=== PATIENT | male | born 1960 | race Two or more races ===

== ENCOUNTER → 2017-04-28 | Outpatient (CLI) | payer OTHER ==
--- NOTE | 2017-05-09 01:12 | ECWPNPC ---
PATIENT NAME: MANNY ZENDEJAS : 1960 GENDER: MALE VISIT DATE: 04/28/2017 DISCHARGE DATE: 04/28/17 1253 VISIT LOCKED DATE TIME: PHYSICIAN: LAVONNE GEE RESOURCE: LAVONNE GEE REASON FOR APPOINTMENT 1. LOW BACK PAIN HISTORY OF PRESENT ILLNESS NEW PATIENT CONSULT: WHEN DID YOUR PAIN FIRST START? . BRIEFLY DESCRIBE HOW YOUR PAIN STARTED? . HOW DOES YOUR PAIN CHANGE WITH TIME? . DOES YOUR PAIN AWAKEN YOU FROM SLEEP? . HOW MANY HOURS OF SLEEP DO YOU NORMALLY GET? . ANY DIAGNOSTIC TESTING? . FACILITY WHERE TESTS WERE DONE? ____. PAIN TREATMENT TREATMENT YES CANCER HAVE YOU EVER HAD ANY TYPE OF CANCER?NO NO. 56 YEAR OLD MALE PATIENT WITH HISTORY OF CHRONIC LOW BACK PAIN. PATIENT DESCRIBES THE PAIN ACHING, THROBBING, STABBING AND HAVING IT ALL THE TIME WITH A PAIN SCORE OF 6/10. PATIENT STATES THAT THE PAIN HAS BEEN PRESENT FOR MANY YEARS BUT BECAME SEVERE WITHIN THE LAST FIVE YEARS. PATIENT STATES THAT ANY TYPE OF ACTIVITY INCLUDING WALKING, STANDING, SITTING, AND USING STAIRS INCREASES THE PAIN HE HAS IN HIS LOWER BACK. PATIENT IS USING XERALTO FOR A BLOOD CLOT. PATIENT DENIES UNEXPLAINABLE WEIGHT LOSS, FEVER, CHILLS, NEW CHANGES ON HIS URINARY OR BOWEL CONTROL. PAIN SCREENING: PATIENT HAS A COMPLAINT OF ACUTE OR CHRONIC PAIN :YES FALL RISK SCREENING: SCREENING :NO FALLS IN THE PAST YEAR VILLALTA INVENTORY: QUESTIONNAIRE ASSESSEDTBD SCORE VALUE CALCULATED TBD CURRENT MEDICATIONS TAKING OMEPRAZOLE 20 MG CAPSULE DELAYED RELEASE 1 CAPSULE ORALLY ONCE A DAY TAKING FEXOFENADINE-PSEUDOEPHED ER 60-120 MG TABLET EXTENDED RELEASE 12 HOUR 1 TABLET NEEDED ORALLY TWICE A DAY TAKING SERTRALINE HCL 100 MG TABLET 1 TABLET ORALLY ONCE A DAY TAKING HYDROCHLOROTHIAZIDE 12.5 MG CAPSULE 1 CAPSULE IN THE MORNING ORALLY ONCE A DAY TAKING INCRUSE ELLIPTA 62.5 MCG/INH AEROSOL POWDER BREATH ACTIVATED 1 PUFF INHALATION ONCE A DAY TAKING XARELTO 15 MG TABLET ORALLY BID TAKING PRAVASTATIN SODIUM 20 MG TABLET 1 TABLET ORALLY ONCE A DAY UNKNOWN SPIRIVA HANDIHALER 18 MCG CAPSULE 1 CAPSULE INHALATION ONCE A DAY MEDICATION LIST REVIEWED AND RECONCILED WITH THE PATIENT PAST MEDICAL HISTORY HEPATOTOXICITY ETOH ABUSE BLOOD CLOTS IN LUNGS DEPRESSION HYPERLIPIDEMIA HTN EMPHYSEMA LOW BACK PAIN OSTEOARTHRITIS OF LEFT HIP ALLERGIES WELLBUTRIN: JITTERY FEELING SURGICAL HISTORY DENIES PAST SURGICAL HISTORY FAMILY HISTORY FATHER: 62 YRS, DIAGNOSED WITH HEART DISEASE MOTHER: 81 YRS SIBLINGS: KIDNEY DISEASE, DIAGNOSED WITH DIABETES SOCIAL HISTORY GENERAL: LEARNING BARRIERS / SPECIAL NEEDS VISION IMPAIRED?YES :CORRECTIVE LENSES SPECIAL DEVICES?YES :CANE, WALKER, WHEELCHAIR PAIN CLINIC PFS, CLERGY, PUBLIC HEALTH REFERRALS CLERGY REFERRAL NEEDED?NO WAS THE PROVIDER NOTIFIED OF ANY PERTINENT INFO?NO PFS REFERRAL NEEDED?NO PUBLIC HEALTH REFERRAL NEEDED?NO PATIENT: ____. ADVANCE DIRECTIVES HEALTH CARE PROXY?YES NAME OF HCP TRISTAN GOMEZ CONTACT # FOR HCP [phone] DO YOU HAVE A DNR?NO LIVING WILL?NO POWER OF RN ORTHOPEDIC?NO HOSPITALIZATION/MAJOR DIAGNOSTIC PROCEDURE LIVER, KIDNEYS REVIEW OF SYSTEMS REVIEWED BY: PROVIDER: LAVONNE GEE MD . CONSTITUTIONAL: ANY CHANGE IN YOUR MEDICAL CONDITION? NO . CHILLS NO . FEVER NO . INFECTION: DO YOU HAVE NEW INFECTIONS? NO . DO YOU HAVE HISTORY OF MRSA? NO . MUSCULOSKELETAL: ANY NEW PATTERNS OF PAIN OR NUMBNESS? NO . SYTEMIC LUPUS NO . GASTROENTEROLOGY: ANY NEW CHANGE IN BOWEL CONTROL? NO . BARRETTS ESOPHAGUS NO . CIRRHOSIS YES . HEPATITIS NO . LIVER FAILURE NO . ACID REFLUX NO . UNEXPLAINED WEIGHT LOSS NO . GENITOURINARY: ANY NEW CHANGE IN BLADDER CONTROL? NO . IS THERE A CHANCE YOU COULD BE ? NO . HEMATOLOGY/LYMPH: DO YOU TAKE ANY BLOOD THINNERS? (FOR EXAMPLE- COUMADIN, PLAVIX, AGGRENOX, PLATEL, PRADAXA, OR XARELTO) YES, XARELTO . WHEN WAS YOUR LAST DOSE? DATE: TIME: . LOW PLATELET COUNT NO . SICKLE CELL DISEASE NO . VON WILLIEBRANDS NO . FACTOR V LEIDEN NO . THALLASEMIA NO . ANEMIA NO . EASY BRUISING NO . NEUROLOGY: HAVE YOU FALLEN IN THE PAST 6 MONTHS? YES . ANY NEW EXTREMITY NUMBNESS OR WEAKNESS? NO . HEAD INJURY NO . DEMENTIA NO . CEREBRAL PALSY NO . MULTIPLE SCLEROSIS NO . DIZZINESS YES . HEADACHE NO . STROKES NO . VERTIGO NO . CARDIOLOGY: DO YOU HAVE A PACEMAKER OR DEFIBRILLATOR? NO . ANGINA NO . HEART ATTACK NO . HEART SURGERY NO . CONGESTIVE HEART FAILURE/FLUID OVERLOAD YES . CHEST PAIN CHEST PAIN WITH EXERTION . HIGH BLOOD PRESSURE YES . IRREGULAR HEART BEAT NO . RESPIRATORY: HAVE YOU BEEN SICK IN THE PAST WEEK? NO . FEVER NO . FLU LIKE SYMPTOMS? NO . CPAP NO . BYPAP NO . ASTHMA NO . EMPHYSEMA YES . CHRONIC LUNG DISEASES NO . SHORTNESS OF BREATH ON EXERTION YES . DO YOU USE ANY TYPE OF TOBACCO (SMOKE, SMOKELESS, CHEW)? NO . COUGH NO . SNORING NO . INTEGUMENTARY: DO YOU HAVE ANY RASHES OR OPEN SORES? NO . ALLERGIC/IMMUNO: ARE YOU ALLERGIC TO SHELLFISH OR IV DYE? NO . ANY NEW ALLERGIES? NO . PSYCHIATRIC: DO YOU HAVE THOUGHTS OF HURTING YOURSELF OR SOMEONE ELSE? NO . ARE YOU ABUSED, NEGLECTED, OR IN AN UNSAFE ENVIRONMENT? NO . ENDOCRINOLOGY: ARE YOU DIABETIC? YES, PT WAS TOLD HE IS THEN HE ISN'T . THYROID DISORDER NO . OTHER: DO YOU NEED ANY PRESCRIPTIONS? YES . IF YES, PLEASE LIST: ____ . ANY NEW PROBLEMS WITH YOUR MEDICATIONS? NO . WHEN DID YOU LAST EAT? ____ . WHEN DID YOU LAST DRINK? ____ . WHAT DID YOU LAST DRINK? ____ . NAME OF PERSON DRIVING YOU HOME? ____ . DO YOU HAVE ANY OTHER QUESTIONS OR CONCERNS NO . VITAL SIGNS WT 167 LBS, HT 69 IN, BMI 24.66 INDEX, BP 125/77 MM HG, HR 110 /MIN, RR 16 /MIN, TEMP 97.3 F, OXYGEN SAT % 99, REVIEWED BY: KEELY. EXAMINATION : PATIENT IS ALERT O X 3 AND COOPERATIVE. TENDERNESS IN THE LOWER BACK AND PARASPINAL MUSCLE GROUP. BANDS OF TISSUE, RESTRICTION OF MOVEMENT, AND PRESENCE OF TRIGGER POINTS IN THE LOWER BACK AREA. MRI OF THE LUMBAR SPINE DONE ON 01/17/17 SHOWS MULTIPLE LEVELS OF SPONDYLOSIS, DISC HERNIATIONS, WELL FACET HYPERTROPHY. ASSESSMENTS MYALGIA - M79.1 (PRIMARY) INTERVERTEBRAL DISC DISORDER WITH RADICULOPATHY OF LUMBAR REGION - M51.16 INTERVERTEBRAL DISC DISORDER WITH RADICULOPATHY OF LUMBOSACRAL REGION - M51.17 SPONDYLOSIS OF LUMBAR REGION WITHOUT MYELOPATHY OR RADICULOPATHY - M47.816 SPONDYLOSIS OF LUMBOSACRAL REGION WITHOUT MYELOPATHY OR RADICULOPATHY - M47.817 TREATMENT MYALGIA NOTES: WE DISCUSSED SEVERAL ISSUES WITH MR. ZENDEJAS'S PAIN MANAGEMENT CASE. AT THIS TIME THE PATIENT WILL START GABAPENTIN FOR THE NEUROPATHIC PAIN HE IS HAVING. I WOULD LIKE TO SPEAK TO THE PATIENT'S PRIMARY CARE DOCTOR TO DISCUSS MEDICATIONS. I WOULD LIKE THE PATIENT TO START CYMBALTA DURING THE DAY AND TIZANIDINE AT NIGHT BUT WOULD LIEK TO DISCUSS THIS WITH DR. CAMPBELL. PATIENT WAS ALSO ADVISED TO ASK HIS PRIMARY PHYSICIAN IF HE IS ABLE TO USE STEROID FOR POSSIBLE INTERVENTIONS. DUE TO THE BANDS OF TISSUE AND RESTRICTION OF MOVEMENT I WOULD LIKE TO PROCEED WITH TRIGGER POINT INJECTIONS WITHOUT STEROIDS. WE DISCUSSED THE RISKS, BENENFITS, AND ALTNERATIVES OF THIS AND THE PATIENT WOULD LIKE TO PROCEED AT THIS TIME. INSTRUCTIONS WERE GIVEN, QUESTIONS WERE ANSWERED, PATIENT REPORTS UNDERSTANDING AND AGREES WITH THE PLAN. I, AFSANEH STEWART, DOCUMENTED THE ABOVE INFORMATION ACTING A SCRIBE FOR DR. GEE. I HAVE REVIEWED THE ABOVE DOCUMENT, WRITTEN BY AFSANEH GUZMAN AND I VERIFY THAT IT IS ACCURATE. DEAR DR. CONLEY:THANK YOU FOR YOUR KIND REFERRAL OF MR. ZENDEJAS. IF YOU WANT TO DISCUSS HIS CASE WITH ME PLEASE CALL ME AT THE PAIN CENTER AT [phone]. SINCERELY,LAVONNE GEE, [facility]. OTHERS START GABAPENTIN CAPSULE, 100 MG, DIRECTED, ORALLY FOR PAIN, BEFORE BEDTIME, 30 DAY(S), 30, REFILLS 1 PROCEDURE CODES FA211 ESTABILISHED PATIENT [facility] FACILITY CHARGE G8427 DOC MEDS VERIFIED W/PT OR RE G8730 PAIN ASSESS POS TOOL F/U PLAN DOC DISPOSITION & COMMUNICATION FOLLOW UP 3 WEEKS ELECTRONICALLY SIGNED BY LAVONNE GEE MD ON 05/08/2017 AT 04:46 PM EDT DISCLAIMER : THIS IS A VISIT SUMMARY EXTRACTED FROM THE [employer] CHART. IT IS NOT A COPY OF THE [employer] PROGRESS NOTE. RAPHAEL
== END ==
LOC: M PAIN 10:45
PROVIDERS: ATTEND Anesthesiology
DX: M79.1 Myalgia (principal); M51.16 Intervertebral disc disorders with radiculopathy, lumbar region; M51.17 Intervertebral disc disorders with radiculopathy, lumbosacral region; M47.816 Spondylosis without myelopathy or radiculopathy, lumbar region; M47.817 Spondylosis without myelopathy or radiculopathy, lumbosacral region; G89.29 Other chronic pain; I10 Essential (primary) hypertension; E78.5 Hyperlipidemia, unspecified; F32.9 Major depressive disorder, single episode, unspecified; J43.9 Emphysema, unspecified; Z79.899 Other long term (current) drug therapy; Z88.8 Allergy status to other drugs, medicaments and biological substances

== ENCOUNTER → 2017-05-26 | Outpatient (CLI) | payer OTHER ==
--- NOTE | 2017-06-12 00:01 | ECWPNPC ---
PATIENT NAME: MANNY ZENDEJAS : 1960 GENDER: MALE VISIT DATE: 05/26/2017 DISCHARGE DATE: 05/26/17 1134 VISIT LOCKED DATE TIME: PHYSICIAN: LAVONNE GEE RESOURCE: LAVONNE GEE REASON FOR APPOINTMENT 1. LOW BACK PAIN HISTORY OF PRESENT ILLNESS HISTORY OF PRESENT ILLNESS: PAIN THE PATIENT DESCRIBES THE PAIN... 56 YEAR OLD MALE PATIENT WITH HISTORY OF CHRONIC LOW BACK PAIN. PATIENT DESCRIBES THE PAIN ACHING, THROBBING, STABBING AND HAVING IT ALL THE TIME WITH A PAIN SCORE OF 6/10. PATIENT STATES THAT THE PAIN HAS BEEN PRESENT FOR MANY YEARS BUT BECAME SEVERE WITHIN THE LAST FIVE YEARS. PATIENT STATES THAT ANY TYPE OF ACTIVITY INCLUDING WALKING, STANDING, SITTING, AND USING STAIRS INCREASES THE PAIN HE HAS IN HIS LOWER BACK. PATIENT IS USING XERALTO FOR A BLOOD CLOT. PATIENT RECEIVED TRIGGER POINT INJECTIONS ON 05/24/17 AND STATES THAT THE TRIGGER POINT INJECTION GAVE HIM GOOD RELIEF IN THE LOWER BACK BUT THE PAIN IN THE LEGS IS GETTING SEVERE. PATIENT DENIES UNEXPLAINABLE WEIGHT LOSS, FEVER, CHILLS, NEW CHANGES ON HIS URINARY OR BOWEL CONTROL. FALL RISK SCREENING: SCREENING :NO FALLS IN THE PAST YEAR CURRENT MEDICATIONS TAKING FAMOTIDINE 20 MG TABLET 1 TABLET AT BEDTIME ORALLY BID, NOTES: 929 TAKING TAB-A-DENVER - TABLET 1 TABLET ORALLY ONCE A DAY, NOTES: 929 TAKING BISACODYL 10 MG SUPPOSITORY 1 SUPPOSITORY NEEDED RECTAL ONCE A DAY TAKING ENEMA 19-7 GM/118ML ENEMA RECTAL AFTER NO BM X 4 DAYS TAKING GLUCAGON EMERGENCY 1 MG KIT INJECTION TAKING ZOFRAN ODT 4 MG TABLET DISINTEGRATING 1 TABLET ON THE TONGUE AND ALLOW TO DISSOLVE ORALLY EVERY 6 HRS, NOTES: 05/23/17@2100 TAKING MORPHINE SULFATE (CONCENTRATE) 20 MG/ML SOLUTION 0.25 ML NEEDED ORALLY BID, NOTES: 05/23/17@2100 TAKING LORAZEPAM 0.5 MG TABLET 1 TABLET NEEDED ORALLY EVERY 8 HRS, NOTES: 05/22/17@1700 TAKING XARELTO 15 MG TABLET ORALLY DAILY, NOTES: 929 TAKING PRAVASTATIN SODIUM 20 MG TABLET 1 TABLET ORALLY ONCE A DAY, NOTES: 929 TAKING SERTRALINE HCL 100 MG TABLET 1 TABLET ORALLY ONCE A DAY, NOTES: 929 TAKING THIAMINE HCL 100 MG TABLET 1 TABLET ORALLY ONCE A DAY, NOTES: 929 TAKING ASPIRIN 81 MG TABLET CHEWABLE 1 TABLET ORALLY ONCE A DAY, NOTES: 929 TAKING FOLIC ACID 400 MCG TABLET 1 TABLET ORALLY ONCE A DAY, NOTES: 929 TAKING DUONEB 0.5-2.5 (3) MG/3ML SOLUTION 3 ML INHALATION TID, NOTES: 929 TAKING VENLAFAXINE HCL ER 75 MG CAPSULE EXTENDED RELEASE 24 HOUR 1 CAPSULE WITH FOOD ORALLY ONCE A DAY, NOTES: 05/23/17@2200 TAKING ALDACTONE 100 MG TABLET 1 TABLET ORALLY ONCE A DAY, NOTES: 929 TAKING LACTULOSE 10 GM/15ML SOLUTION 30 ML ORALLY ONCE A DAY, NOTES: 929 TAKING PULMICORT FLEXHALER 90 MCG/ACT AEROSOL POWDER BREATH ACTIVATED 2 PUFFS INHALATION TWICE A DAY, NOTES: 929 TAKING FUROSEMIDE 40 MG TABLET 1 TABLET ORALLY BID, NOTES: 929 TAKING BANOPHEN 25 MG TABLET 1 TABLET ORALLY BEFORE BEDTIME, NOTES: 05/23/17@2130 TAKING HYDROCHLOROTHIAZIDE 12.5 MG CAPSULE 1 CAPSULE IN THE MORNING ORALLY ONCE A DAY, NOTES: 929 MEDICATION LIST REVIEWED AND RECONCILED WITH THE PATIENT PAST MEDICAL HISTORY HEPATOTOXICITY ETOH ABUSE BLOOD CLOTS IN LUNGS DEPRESSION HYPERLIPIDEMIA HTN EMPHYSEMA LOW BACK PAIN OSTEOARTHRITIS OF LEFT HIP ALLERGIES WELLBUTRIN: JITTERY FEELING REVIEW OF SYSTEMS REVIEWED BY: PROVIDER: LAVONNE GEE MD . CONSTITUTIONAL: ANY CHANGE IN YOUR MEDICAL CONDITION? NO . CHILLS NO . FEVER NO . INFECTION: DO YOU HAVE NEW INFECTIONS? NO . DO YOU HAVE HISTORY OF MRSA? NO . MUSCULOSKELETAL: ANY NEW PATTERNS OF PAIN OR NUMBNESS? NO . GASTROENTEROLOGY: ANY NEW CHANGE IN BOWEL CONTROL? NO . GENITOURINARY: ANY NEW CHANGE IN BLADDER CONTROL? NO . IS THERE A CHANCE YOU COULD BE ? NO . HEMATOLOGY/LYMPH: DO YOU TAKE ANY BLOOD THINNERS? (FOR EXAMPLE- COUMADIN, PLAVIX, AGGRENOX, PLATEL, PRADAXA, OR XARELTO) NO . WHEN WAS YOUR LAST DOSE? DATE: TIME: . NEUROLOGY: HAVE YOU FALLEN IN THE PAST 6 MONTHS? NO . ANY NEW EXTREMITY NUMBNESS OR WEAKNESS? NO . CARDIOLOGY: DO YOU HAVE A PACEMAKER OR DEFIBRILLATOR? NO . RESPIRATORY: HAVE YOU BEEN SICK IN THE PAST WEEK? NO . FEVER NO . FLU LIKE SYMPTOMS? NO . COUGH NO . INTEGUMENTARY: DO YOU HAVE ANY RASHES OR OPEN SORES? NO . ALLERGIC/IMMUNO: ARE YOU ALLERGIC TO SHELLFISH OR IV DYE? NO . ANY NEW ALLERGIES? NO . PSYCHIATRIC: DO YOU HAVE THOUGHTS OF HURTING YOURSELF OR SOMEONE ELSE? NO . ARE YOU ABUSED, NEGLECTED, OR IN AN UNSAFE ENVIRONMENT? NO . ENDOCRINOLOGY: ARE YOU DIABETIC? NO . OTHER: DO YOU NEED ANY PRESCRIPTIONS? NO . IF YES, PLEASE LIST: ____ . ANY NEW PROBLEMS WITH YOUR MEDICATIONS? NO . WHEN DID YOU LAST EAT? ____ . WHEN DID YOU LAST DRINK? ____ . WHAT DID YOU LAST DRINK? ____ . NAME OF PERSON DRIVING YOU HOME? ____ . DO YOU HAVE ANY OTHER QUESTIONS OR CONCERNS NO . VITAL SIGNS WT 195.0 LBS, HT 69 IN, BMI 28.79 INDEX, BP 129/70 MM HG, HR 104 /MIN, RR 16 /MIN, TEMP 97.5 F, OXYGEN SAT % 96%, NA INITIALS TL 1045, REVIEWED BY: KG. EXAMINATION : PATIENT IS ALERT O X 3 AND COOPERATIVE. TENDERNESS IN THE LOWER BACK AND PARASPINAL MUSCLE GROUP. BANDS OF TISSUE, RESTRICTION OF MOVEMENT, AND PRESENCE OF TRIGGER POINTS IN THE LOWER BACK AREA. MRI OF THE LUMBAR SPINE DONE ON 01/17/17 SHOWS MULTIPLE LEVELS OF SPONDYLOSIS, DISC HERNIATIONS, WELL FACET HYPERTROPHY. ASSESSMENTS INTERVERTEBRAL DISC DISORDER WITH RADICULOPATHY OF LUMBAR REGION - M51.16 (PRIMARY) INTERVERTEBRAL DISC DISORDER WITH RADICULOPATHY OF LUMBOSACRAL REGION - M51.17 TREATMENT INTERVERTEBRAL DISC DISORDER WITH RADICULOPATHY OF LUMBAR REGION NOTES: WE DISCUSSED SEVERAL ISSUES WITH MR. ZENDEJAS'S PAIN MANAGEMENT CASE. I WAS WITH THE PATIENT FOR OVER 25 MINUTES IN COORDINATION WITH HIS CARE DISCUSSING POSSIBLE INTERVENTIONS AND THE STEPS TO RECEIVE A CLEARANCE TO STOP XERALTO. AT THIS TIME THE WILL CONTINUE WITH THE SAME MEDICATION REGIME BEFORE. I WOULD LIKE THE PATIENT TO RECEIVE AN UPDATED MRI. I DISCUSSED WITH THE RADIOLOGIST THE MRI OF LUMBAR SPINE ON 01/17/2017 AND AFTER SPEAKING WITH THE RADIOLOGIST HE AGREED WITH PROCEEDING WITH AN UPDATED MRI DUE TO THE COLLECTION OF NERVES. I ALSO SPOKE WITH THE PRIMARY CARE PHYSICIAN ABOUT MOVING FORWARD WITH A BUN AND CREATINE TEST BUT THE PATIENT RECEIVED ONE TWO WEEKS PRIOR AND FEELS HE IS OKAY TO MOVE FORWARD WITH THE MRI WITHOUT REPEATING THE STUDY. I WOULD ALSO LIKE THE PATIENT TO RECEIVE CLEARANCE FROM HIS PRIMARY CARE DOCTOR TO STOP XERALTO FOR POSSIBLE INJECTIONS. PATIENT WILL FOLLOW UP IN 3 WEEKS AFTER RECEIVING THE CLEARANCE AND THE UPDATED MRI. INSTRUCTIONS WERE GIVEN, QUESTIONS WERE ANSWERED, PATIENT REPORTS UNDERSTANDING AND AGREES WITH THE PLAN. I, AFSANEH STEWART, DOCUMENTED THE ABOVE INFORMATION ACTING A SCRIBE FOR DR. GEE. I HAVE REVIEWED THE ABOVE DOCUMENT, WRITTEN BY AFSANEH STEWART SCRIBReema AND I VERIFY THAT IT IS ACCURATE. PROCEDURE CODES FA211 ESTABILISHED PATIENT [facility] CHARGE G8427 DOC MEDS VERIFIED W/PT OR RE G8730 PAIN ASSESS POS TOOL F/U PLAN DOC DISPOSITION & COMMUNICATION FOLLOW UP 3 WEEKS ELECTRONICALLY SIGNED BY LAVONNE GEE MD ON 06/11/2017 AT 10:07 PM EST DISCLAIMER : THIS IS A VISIT SUMMARY EXTRACTED FROM THE [employer] CHART. IT IS NOT A COPY OF THE [employer] PROGRESS NOTE. MTDZaida
== END ==
LOC: M PAIN 10:30
PROVIDERS: ATTEND Anesthesiology
DX: M51.16 Intervertebral disc disorders with radiculopathy, lumbar region (principal); M51.17 Intervertebral disc disorders with radiculopathy, lumbosacral region; M54.5 Low back pain; G89.29 Other chronic pain; I10 Essential (primary) hypertension; E78.5 Hyperlipidemia, unspecified; Z79.82 Long term (current) use of aspirin; Z79.891 Long term (current) use of opiate analgesic; Z79.899 Other long term (current) drug therapy; Z88.8 Allergy status to other drugs, medicaments and biological substances

== ENCOUNTER → 2017-06-13 | Outpatient (CLI) | payer OTHER ==
--- NOTE | 2017-06-28 00:58 | ECWPNPC ---
PATIENT NAME: MANNY ZENDEJAS : 1960 GENDER: MALE VISIT DATE: 06/13/2017 DISCHARGE DATE: 06/13/17 1014 VISIT LOCKED DATE TIME: PHYSICIAN: ROLY SINCLAIR RESOURCE: ROLY SINCLAIR REASON FOR APPOINTMENT 1. LOW BACK PAIN HISTORY OF PRESENT ILLNESS HISTORY OF PRESENT ILLNESS: HERE FOR F/U OF CHRONIC LBP.LONG HISTORY OF MAINLY LEFT SIDED LOW BACK PAIN THAT RADIATES INTO LEFT HIP.HAS BEEN ON XARELTO PAST 9 MONTHS WITH HISTORY OF PULMONARY EMBOLI.RESIDES IN [facility] [place].RATING PAIN VAS 6/10.DESCRIBES PAIN CONSTANT ACHING AND THROBBING.HAS RESPONDED WELL TO TPI AT OUR FACILITY. PAIN THE PATIENT DESCRIBES THE PAIN... FALL RISK SCREENING: SCREENING :NO FALLS IN THE PAST YEAR CURRENT MEDICATIONS TAKING FAMOTIDINE 20 MG TABLET 1 TABLET AT BEDTIME ORALLY BID TAKING TAB-A-DENVER - TABLET 1 TABLET ORALLY ONCE A DAY TAKING BISACODYL 10 MG SUPPOSITORY 1 SUPPOSITORY NEEDED RECTAL ONCE A DAY TAKING ENEMA 19-7 GM/118ML ENEMA RECTAL AFTER NO BM X 4 DAYS TAKING GLUCAGON EMERGENCY 1 MG KIT INJECTION TAKING MORPHINE SULFATE (CONCENTRATE) 20 MG/ML SOLUTION 0.25 ML NEEDED ORALLY BID TAKING LORAZEPAM 0.5 MG TABLET 1 TABLET NEEDED ORALLY EVERY 8 HRS TAKING XARELTO 20 MG TABLET ORALLY DAILY TAKING PRAVASTATIN SODIUM 20 MG TABLET 1 TABLET ORALLY ONCE A DAY TAKING THIAMINE HCL 100 MG TABLET 1 TABLET ORALLY ONCE A DAY TAKING ASPIRIN 81 MG TABLET CHEWABLE 1 TABLET ORALLY ONCE A DAY TAKING FOLIC ACID 400 MCG TABLET 1 TABLET ORALLY ONCE A DAY TAKING DUONEB 0.5-2.5 (3) MG/3ML SOLUTION 3 ML INHALATION TID TAKING VENLAFAXINE HCL ER 75 MG CAPSULE EXTENDED RELEASE 24 HOUR 1 CAPSULE WITH FOOD ORALLY ONCE A DAY TAKING ALDACTONE 100 MG TABLET 1 TABLET ORALLY ONCE A DAY TAKING LACTULOSE 10 GM/15ML SOLUTION 30 ML ORALLY ONCE A DAY TAKING PULMICORT FLEXHALER 90 MCG/ACT AEROSOL POWDER BREATH ACTIVATED 2 PUFFS INHALATION TWICE A DAY TAKING FUROSEMIDE 40 MG TABLET 1 TABLET ORALLY BID TAKING BANOPHEN 25 MG TABLET 1 TABLET ORALLY BEFORE BEDTIME TAKING GABAPENTIN 100 MG CAPSULE ORALLY DAILY NOT-TAKING ZOFRAN ODT 4 MG TABLET DISINTEGRATING 1 TABLET ON THE TONGUE AND ALLOW TO DISSOLVE ORALLY EVERY 6 HRS NOT-TAKING SERTRALINE HCL 100 MG TABLET 1 TABLET ORALLY ONCE A DAY NOT-TAKING HYDROCHLOROTHIAZIDE 12.5 MG CAPSULE 1 CAPSULE IN THE MORNING ORALLY ONCE A DAY MEDICATION LIST REVIEWED AND RECONCILED WITH THE PATIENT PAST MEDICAL HISTORY HEPATOTOXICITY ETOH ABUSE BLOOD CLOTS IN LUNGS DEPRESSION HYPERLIPIDEMIA HTN EMPHYSEMA LOW BACK PAIN OSTEOARTHRITIS OF LEFT HIP ALLERGIES WELLBUTRIN: JITTERY FEELING SOCIAL HISTORY GENERAL: TOBACCO USE ARE YOU A:CURRENT SMOKER HOW MANY CIGARETTES A DAY DO YOU SMOKE?6-10 ARE YOU INTERESTED IN QUITTING?NOT READY TO QUIT PATIENT COUNSELED ON THE DANGERS OF TOBACCO USE AND URGED TO QUIT:05/24/2017 COUNSELED THE PATIENT ON SMOKING EFFECTS, EDUCATION [id number]/2017 ALCOHOL SCREENING DID YOU HAVE A DRINK CONTAINING ALCOHOL IN THE PAST YEAR?NO POINTS0 INTERPRETATIONNEGATIVE RECREATIONAL DRUG USE DRUG USE?NO CAFFEINE CAFFEINE USE?YES HOW OFTEN AND HOW MUCH? 1 CUP OF COFFEE PER DAY DIET: FLUID RESTRICTION, 1500ML, NO ADDED SALT. OTHERS AT HOME: CURRENTLY LIVES AT [facility]. MU-ISM MU-ISM NO FAITH BELIEFS THAT WOULD IMPACT HEALTH CARE. LANGUAGE LANGUAGES SPOKEN:MARTINIQUAIS LEARNING BARRIERS / SPECIAL NEEDS VISION IMPAIRED?YES :CORRECTIVE LENSES SPECIAL DEVICES?YES :CANE, WALKER, WHEELCHAIR PAIN CLINIC PFS, CLERGY, PUBLIC HEALTH REFERRALS HAS THE PATIENT BEEN EDUCATED REGARDING HIS/HER PLAN OF CARE?YES HAS THE PATIENT BEEN EDUCATED REGARDING PAIN, THE RISK FOR PAIN, THE IMPORTANCE OF EFFECTIVE PAIN MANAGEMENT, AND THE PAIN ASSESSMENT PROCESS?YES PATIENT: ____. ADVANCE DIRECTIVES HEALTH CARE PROXY?YES NAME OF HCP TRISTAN GOMEZ CONTACT # FOR HCP [phone] POWER OF AUTOM[employer]S ASSEMBLER?NO DO YOU HAVE A DNR?NO LIVING WILL?NO TRAVEL OUTSIDE US: NONE. HOSPITALIZATION/MAJOR DIAGNOSTIC PROCEDURE LIVER, KIDNEYS 03/2017 REVIEW OF SYSTEMS REVIEWED BY: PROVIDER: ROLY WILEY . CONSTITUTIONAL: ANY CHANGE IN YOUR MEDICAL CONDITION? NO . CHILLS NO . FEVER NO . INFECTION: DO YOU HAVE NEW INFECTIONS? NO . DO YOU HAVE HISTORY OF MRSA? NO . MUSCULOSKELETAL: ANY NEW PATTERNS OF PAIN OR NUMBNESS? NO . GASTROENTEROLOGY: ANY NEW CHANGE IN BOWEL CONTROL? NO . GENITOURINARY: ANY NEW CHANGE IN BLADDER CONTROL? NO . IS THERE A CHANCE YOU COULD BE ? NO . HEMATOLOGY/LYMPH: DO YOU TAKE ANY BLOOD THINNERS? (FOR EXAMPLE- COUMADIN, PLAVIX, AGGRENOX, PLATEL, PRADAXA, OR XARELTO) YES, XARELTO . WHEN WAS YOUR LAST DOSE? DATE:06/13/17 TIME: 0730 . NEUROLOGY: HAVE YOU FALLEN IN THE PAST 6 MONTHS? YES . ANY NEW EXTREMITY NUMBNESS OR WEAKNESS? NO . CARDIOLOGY: DO YOU HAVE A PACEMAKER OR DEFIBRILLATOR? NO . RESPIRATORY: HAVE YOU BEEN SICK IN THE PAST WEEK? NO . FEVER NO . FLU LIKE SYMPTOMS? NO . COUGH NO . INTEGUMENTARY: DO YOU HAVE ANY RASHES OR OPEN SORES? YES, SORES ON BOTH FEET . ALLERGIC/IMMUNO: ARE YOU ALLERGIC TO SHELLFISH OR IV DYE? NO . ANY NEW ALLERGIES? NO . PSYCHIATRIC: DO YOU HAVE THOUGHTS OF HURTING YOURSELF OR SOMEONE ELSE? NO . ARE YOU ABUSED, NEGLECTED, OR IN AN UNSAFE ENVIRONMENT? NO . ENDOCRINOLOGY: ARE YOU DIABETIC? NO . OTHER: DO YOU NEED ANY PRESCRIPTIONS? YES . IF YES, PLEASE LIST: "FOR PAIN" . ANY NEW PROBLEMS WITH YOUR MEDICATIONS? NO . WHEN DID YOU LAST EAT? ____ . WHEN DID YOU LAST DRINK? ____ . WHAT DID YOU LAST DRINK? ____ . NAME OF PERSON DRIVING YOU HOME? ____ . DO YOU HAVE ANY OTHER QUESTIONS OR CONCERNS NO . VITAL SIGNS WT 178.8 LBS, HT 69 IN, BMI 26.40 INDEX, BP 122/75 MM HG, HR 106 /MIN, RR 18 /MIN, TEMP 97.3 F, OXYGEN SAT % 96%, SAFE IN ENV? (Y/N) YES, NA INITIALS TL 0844, REVIEWED BY: JENNY. EXAMINATION GENERAL EXAMINATION: GENERAL APPEARANCE:COMFORTABLE,ALERT.IN W/C.ACCOMPANIED IN EXAM ROOM WITH NURSE [facility]. PSYCHAFFECT NORMAL. NECK:TRACHEA MIDLINE. NO CERVICAL OR SUPRACLAVICULAR LYMPHADENOPATHY NOTED. LUNGS:LUNG SALDANA ARE CLEAR TO AUSCULTATION BILATERALLY. GOOD MOVEMENT OF AIR. HEART:S1, S2 IN A REGULAR RATE AND RHYTHM. NO SIGNIFICANT MURMURS, RUBS OR GALLOPS NOTED. LUMBAR SACRAL SPINEMUSCLE STRENGTH TESTING 5/5 BILATERAL LOWER EXTREMITIES , TRIGGER POINTS:, ELICITED WITH PALPATION OVER LUMBAR PARAVERTEBRAL MUSCLES L>R AND INTO THE SACRUM. RESTRICTION OF ROM IN THIS AREA. ASSESSMENTS MYOFASCIAL PAIN - M79.1 (PRIMARY) LUMBOSACRAL SPONDYLOLYSIS - M43.07 TREATMENT MYOFASCIAL PAIN NOTES: TPI LEFT LOW BACK. PREVENTIVE MEDICINE PAIN CLINIC TEACHING: MEDICATIONS REQUEST SLIP FOR STOP XARELTO SENT WITH PATIENT AND AIDE ALONG WITH OTHER PAPERWORK TO [facility].. PROCEDURE TEACHING PRE-PROCEDURE (TPI) TEACHING DONE. QUESTIONS ANSWERED AND ADDITIONAL INFORMATION SENT WITH PATIENT AND TO [facility].. PROCEDURE CODES FA211 ESTABILISHED PATIENT [facility] CHARGE DISPOSITION & COMMUNICATION FOLLOW UP 4 WEEKS ROLY (REASON: TPI LEFT LOW BACK) ELECTRONICALLY SIGNED BY SAURABH POTTER ON 06/27/2017 AT 08:50 AM EST DISCLAIMER : THIS IS A VISIT SUMMARY EXTRACTED FROM THE [employer] CHART. IT IS NOT A COPY OF THE [employer] PROGRESS NOTE. RAPHAEL
== END | disposition home or self-care (01) ==
LOC: M PAIN 08:45
PROVIDERS: ATTEND Nurse Practitioner Family
DX: G89.29 Other chronic pain (principal); M79.1 Myalgia; M43.07 Spondylolysis, lumbosacral region; F33.9 Major depressive disorder, recurrent, unspecified; E78.5 Hyperlipidemia, unspecified; I10 Essential (primary) hypertension; J43.9 Emphysema, unspecified; M16.12 Unilateral primary osteoarthritis, left hip; Z79.899 Other long term (current) drug therapy; Z79.82 Long term (current) use of aspirin; Z79.01 Long term (current) use of anticoagulants; Z88.8 Allergy status to other drugs, medicaments and biological substances; F17.210 Nicotine dependence, cigarettes, uncomplicated

== ENCOUNTER → 2017-08-02 | Outpatient (CLI) | payer OTHER ==
[~2017-08-02] MED LIST: BUPIVACAINE HCL 0.25% 10 ML VIAL As Ordered; BUPIVACAINE HCL 0.25% 30 ML VIAL As Ordered; TRIAMCINOLONE ACETONIDE SUSP 40 MG/ML VIAL (J3301) As Ordered; diazePAM 5 MG TAB As Ordered; oxyCODONE 5MG TAB As Ordered
== END ==
LOC: M PAIN 15:15
DX: G89.29 Other chronic pain (principal); M54.5 Low back pain; M79.1 Myalgia; F10.21 Alcohol dependence, in remission; F17.210 Nicotine dependence, cigarettes, uncomplicated; F32.9 Major depressive disorder, single episode, unspecified; E78.5 Hyperlipidemia, unspecified; I10 Essential (primary) hypertension; J43.9 Emphysema, unspecified; M16.12 Unilateral primary osteoarthritis, left hip; Z88.8 Allergy status to other drugs, medicaments and biological substances; Z79.82 Long term (current) use of aspirin; Z79.899 Other long term (current) drug therapy
CPT/HCPCS: J3301

== ENCOUNTER → 2017-08-31 | Outpatient (CLI) | payer OTHER | LOC: M PAIN 14:00 | DX: M43.07 Spondylolysis, lumbosacral region (principal); M79.1 Myalgia; K71.9 Toxic liver disease, unspecified; F10.10 Alcohol abuse, uncomplicated; F32.9 Major depressive disorder, single episode, unspecified; E78.5 Hyperlipidemia, unspecified; I10 Essential (primary) hypertension; J43.9 Emphysema, unspecified; M17.12 Unilateral primary osteoarthritis, left knee; F41.9 Anxiety disorder, unspecified; F17.210 Nicotine dependence, cigarettes, uncomplicated; Z79.01 Long term (current) use of anticoagulants; Z79.82 Long term (current) use of aspirin; Z79.899 Other long term (current) drug therapy; Z88.8 Allergy status to other drugs, medicaments and biological substances | CPT/HCPCS: G0463 ==

== ENCOUNTER → 2017-10-10 | Outpatient (CLI) | payer OTHER, MEDICAID | LOC: M PAIN 09:45 | DX: M53.3 Sacrococcygeal disorders, not elsewhere classified (principal); M79.1 Myalgia; M43.07 Spondylolysis, lumbosacral region; G89.29 Other chronic pain; I10 Essential (primary) hypertension; E78.5 Hyperlipidemia, unspecified; F32.9 Major depressive disorder, single episode, unspecified; F41.9 Anxiety disorder, unspecified; J43.9 Emphysema, unspecified; Z79.01 Long term (current) use of anticoagulants; Z79.899 Other long term (current) drug therapy; Z88.8 Allergy status to other drugs, medicaments and biological substances | CPT/HCPCS: G0463 ==

== ENCOUNTER → 2017-10-31 | Outpatient (CLI) | payer OTHER, MEDICAID ==
[~2017-10-31] MED LIST changes: -BUPIVACAINE HCL 0.25% 10 ML VIAL As Ordered; +ISOVUE-M 300 61% 15ML VIAL (Q9967) As Ordered; +LIDOCAINE 1% SDV INJ 30 ML VIAL As Ordered
== END ==
LOC: M PAIN 11:45
DX: G89.29 Other chronic pain (principal); M46.1 Sacroiliitis, not elsewhere classified; M53.88 Other specified dorsopathies, sacral and sacrococcygeal region; F10.10 Alcohol abuse, uncomplicated; F32.9 Major depressive disorder, single episode, unspecified; E78.5 Hyperlipidemia, unspecified; I10 Essential (primary) hypertension; J43.9 Emphysema, unspecified; M16.12 Unilateral primary osteoarthritis, left hip; F41.9 Anxiety disorder, unspecified; F17.210 Nicotine dependence, cigarettes, uncomplicated; Z79.01 Long term (current) use of anticoagulants; Z79.82 Long term (current) use of aspirin; Z79.899 Other long term (current) drug therapy; Z88.8 Allergy status to other drugs, medicaments and biological substances
CPT/HCPCS: J3301

== ENCOUNTER → 2018-01-01 | Outpatient (CLI) | payer OTHER, MEDICAID ==
[~2018-01-01] MED LIST changes: -TRIAMCINOLONE ACETONIDE SUSP 40 MG/ML VIAL (J3301) As Ordered; -diazePAM 5 MG TAB As Ordered; -oxyCODONE 5MG TAB As Ordered
== END ==
LOC: M PAIN 11:30
DX: G89.29 Other chronic pain (principal); M47.816 Spondylosis without myelopathy or radiculopathy, lumbar region; M47.817 Spondylosis without myelopathy or radiculopathy, lumbosacral region; F32.9 Major depressive disorder, single episode, unspecified; E78.5 Hyperlipidemia, unspecified; I10 Essential (primary) hypertension; J43.9 Emphysema, unspecified; M16.12 Unilateral primary osteoarthritis, left hip; F41.9 Anxiety disorder, unspecified; F17.210 Nicotine dependence, cigarettes, uncomplicated; Z79.01 Long term (current) use of anticoagulants; Z79.82 Long term (current) use of aspirin; Z79.891 Long term (current) use of opiate analgesic; Z79.899 Other long term (current) drug therapy; Z88.8 Allergy status to other drugs, medicaments and biological substances
CPT/HCPCS: Q9967

== ENCOUNTER → 2018-01-25 | Outpatient (CLI) | payer OTHER, MEDICAID | LOC: M PAIN 14:30 | DX: M47.817 Spondylosis without myelopathy or radiculopathy, lumbosacral region (principal); M53.3 Sacrococcygeal disorders, not elsewhere classified; F32.9 Major depressive disorder, single episode, unspecified; E78.5 Hyperlipidemia, unspecified; I10 Essential (primary) hypertension; J43.9 Emphysema, unspecified; M16.12 Unilateral primary osteoarthritis, left hip; F41.9 Anxiety disorder, unspecified; F10.10 Alcohol abuse, uncomplicated; F17.210 Nicotine dependence, cigarettes, uncomplicated; Z79.01 Long term (current) use of anticoagulants; Z79.82 Long term (current) use of aspirin; Z79.899 Other long term (current) drug therapy; Z88.8 Allergy status to other drugs, medicaments and biological substances | CPT/HCPCS: G0463 ==

== ENCOUNTER → 2018-02-21 | Outpatient (CLI) | payer OTHER, MEDICAID ==
[~2018-02-21] MED LIST changes: +BUPIVACAINE HCL 0.25% 10 ML VIAL As Ordered; -ISOVUE-M 300 61% 15ML VIAL (Q9967) As Ordered; -LIDOCAINE 1% SDV INJ 30 ML VIAL As Ordered; +TRIAMCINOLONE ACETONIDE SUSP 40 MG/ML VIAL (J3301) As Ordered; +diazePAM 5 MG TAB As Ordered; +oxyCODONE 5MG TAB As Ordered
== END ==
LOC: M PAIN 13:30
DX: G89.29 Other chronic pain (principal); M79.1 Myalgia; M54.5 Low back pain; F32.9 Major depressive disorder, single episode, unspecified; E78.5 Hyperlipidemia, unspecified; I10 Essential (primary) hypertension; J43.9 Emphysema, unspecified; M16.12 Unilateral primary osteoarthritis, left hip; F41.9 Anxiety disorder, unspecified; F17.210 Nicotine dependence, cigarettes, uncomplicated; Z79.01 Long term (current) use of anticoagulants; Z79.82 Long term (current) use of aspirin; Z88.8 Allergy status to other drugs, medicaments and biological substances; Z86.59 Personal history of other mental and behavioral disorders
CPT/HCPCS: J3301

== ENCOUNTER → 2018-03-13 | Outpatient (CLI) | payer OTHER, MEDICAID | LOC: M PAIN 11:30 | DX: M47.817 Spondylosis without myelopathy or radiculopathy, lumbosacral region (principal); M53.3 Sacrococcygeal disorders, not elsewhere classified; F32.9 Major depressive disorder, single episode, unspecified; E78.5 Hyperlipidemia, unspecified; I10 Essential (primary) hypertension; J43.9 Emphysema, unspecified; M16.12 Unilateral primary osteoarthritis, left hip; F41.9 Anxiety disorder, unspecified; F10.10 Alcohol abuse, uncomplicated; Z86.711 Personal history of pulmonary embolism; F17.210 Nicotine dependence, cigarettes, uncomplicated; Z79.01 Long term (current) use of anticoagulants; Z79.82 Long term (current) use of aspirin; Z79.899 Other long term (current) drug therapy; Z88.8 Allergy status to other drugs, medicaments and biological substances | CPT/HCPCS: G0463 ==

== ENCOUNTER → 2018-05-01 | Outpatient (CLI) | payer OTHER, MEDICAID | LOC: M PAIN 11:30 | DX: M47.817 Spondylosis without myelopathy or radiculopathy, lumbosacral region (principal); G89.29 Other chronic pain; M79.604 Pain in right leg; J43.9 Emphysema, unspecified; I10 Essential (primary) hypertension; E78.5 Hyperlipidemia, unspecified; F32.9 Major depressive disorder, single episode, unspecified; M16.12 Unilateral primary osteoarthritis, left hip; F41.9 Anxiety disorder, unspecified; F10.21 Alcohol dependence, in remission; F17.210 Nicotine dependence, cigarettes, uncomplicated; Z79.01 Long term (current) use of anticoagulants; Z79.82 Long term (current) use of aspirin; Z79.899 Other long term (current) drug therapy; Z88.8 Allergy status to other drugs, medicaments and biological substances | CPT/HCPCS: G0463 ==

== ENCOUNTER → 2018-05-29 | Outpatient (CLI) | payer OTHER, MEDICAID | LOC: M PAIN 10:45 | DX: M47.817 Spondylosis without myelopathy or radiculopathy, lumbosacral region (principal); G89.29 Other chronic pain; I10 Essential (primary) hypertension; F32.9 Major depressive disorder, single episode, unspecified; E78.5 Hyperlipidemia, unspecified; J43.9 Emphysema, unspecified; M16.12 Unilateral primary osteoarthritis, left hip; F41.9 Anxiety disorder, unspecified; Z79.82 Long term (current) use of aspirin; Z79.01 Long term (current) use of anticoagulants; Z79.899 Other long term (current) drug therapy; Z88.8 Allergy status to other drugs, medicaments and biological substances | CPT/HCPCS: G0463 ==

== ENCOUNTER → 2018-06-19 | Outpatient (CLI) | payer OTHER, MEDICAID | LOC: M PAIN 11:30 | DX: M79.18 Myalgia, other site (principal); F32.9 Major depressive disorder, single episode, unspecified; E78.5 Hyperlipidemia, unspecified; I10 Essential (primary) hypertension; J43.9 Emphysema, unspecified; M54.5 Low back pain; M16.12 Unilateral primary osteoarthritis, left hip; F41.9 Anxiety disorder, unspecified; F10.10 Alcohol abuse, uncomplicated; Z86.711 Personal history of pulmonary embolism; F17.210 Nicotine dependence, cigarettes, uncomplicated; Z79.82 Long term (current) use of aspirin; Z79.899 Other long term (current) drug therapy; Z88.8 Allergy status to other drugs, medicaments and biological substances; Z79.01 Long term (current) use of anticoagulants | CPT/HCPCS: J3301 ==

== ENCOUNTER → 2018-07-04 | Outpatient (CLI) | payer OTHER, MEDICAID ==
--- NOTE | 2018-07-26 02:17 | ECWPNPC ---
PATIENT NAME: MANNY ZENDEJAS : 1960 GENDER: MALE VISIT DATE: 07/04/2018 DISCHARGE DATE: 07/04/18 1217 VISIT LOCKED DATE TIME: PHYSICIAN: ROLY SINCLAIR RESOURCE: ROLY SINCLAIR REASON FOR APPOINTMENT 1. POST TPI HISTORY OF PRESENT ILLNESS DEPRESSION SCREENING: PHQ-2 IN LAST TWO WEEKS HAVE YOU BEEN BOTHERED BY LITTLE INTEREST OR PLEASURE IN DOING THINGSNO FEELING DOWN, DEPRESSED, OR HOPELESSNO HISTORY OF PRESENT ILLNESS: HERE FOR F/U.OF CHRONIC LOW BACK PAIN.HAD TPI OVER LOW BACK ON 05-29-18.REPORTING NO IMPROVEMENT .RATING LOW BACK PAIN VAS 8/10.ON XARELTO THERAPY AND NOT ABLE TO STOP FOR ANYMORE INJECTIONS.HAS TRIALED MULTIPLE MEDICATION WITHOUT RELIEF.CHIEF AREA OF PAIN IS LOW BACK. PAIN THE PATIENT DESCRIBES THE PAIN... THE PATIENT DESCRIBES THE PAIN... THE PATIENT DESCRIBES THE PAIN... FALL RISK SCREENING: SCREENING :NO FALLS IN THE PAST YEAR CURRENT MEDICATIONS TAKING FAMOTIDINE 20 MG TABLET 1 TABLET AT BEDTIME ORALLY BID TAKING GLUCAGON EMERGENCY 1 MG KIT INJECTION TAKING TAB-A-DENVER - TABLET 1 TABLET ORALLY ONCE A DAY TAKING ASPIRIN 81 MG TABLET CHEWABLE 1 TABLET ORALLY ONCE A DAY TAKING FOLIC ACID 400 MCG TABLET 1 TABLET ORALLY ONCE A DAY TAKING DUONEB 0.5-2.5 (3) MG/3ML SOLUTION 3 ML INHALATION TID TAKING VENLAFAXINE HCL ER 75 MG CAPSULE EXTENDED RELEASE 24 HOUR 1 CAPSULE WITH FOOD ORALLY ONCE A DAY TAKING ALDACTONE 100 MG TABLET 1 TABLET ORALLY ONCE A DAY TAKING PULMICORT FLEXHALER 90 MCG/ACT AEROSOL POWDER BREATH ACTIVATED 2 PUFFS INHALATION TWICE A DAY TAKING FUROSEMIDE 40 MG TABLET 1 TABLET ORALLY BID TAKING BANOPHEN 25 MG TABLET 1 TABLET ORALLY BEFORE BEDTIME TAKING PRAVASTATIN SODIUM 20 MG TABLET 1 TABLET ORALLY ONCE A DAY TAKING THIAMINE HCL 100 MG TABLET 1 TABLET ORALLY ONCE A DAY TAKING TRAZODONE HCL 50 MG TABLET 1 CAP ORALLY DAILY TAKING XARELTO 20 MG TABLET ORALLY DAILY TAKING GABAPENTIN 300 MG CAPSULE 2 CAP ORALLY TID TAKING FEXOFENADINE HCL 180 MG TABLET 1 TABLET NEEDED ORALLY ONCE A DAY TAKING BUSPIRONE HCL 10 MG TABLET 1 TABLET ORALLY BID TAKING DOK 100 MG CAPSULE 1 CAPSULE ORALLY BID TAKING DIAZEPAM 5 MG TABLET 1 TABLET NEEDED ORALLY TID TAKING NORCO 5-325 MG TABLET 1 TABLET NEEDED ORALLY EVERY 6 HRS PRN MDD2 NOT-TAKING ZOFRAN ODT 4 MG TABLET DISINTEGRATING 1 TABLET ON THE TONGUE AND ALLOW TO DISSOLVE ORALLY EVERY 6 HRS NOT-TAKING SERTRALINE HCL 100 MG TABLET 1 TABLET ORALLY ONCE A DAY NOT-TAKING HYDROCHLOROTHIAZIDE 12.5 MG CAPSULE 1 CAPSULE IN THE MORNING ORALLY ONCE A DAY NOT-TAKING LACTULOSE 10 GM/15ML SOLUTION 30 ML ORALLY ONCE A DAY NOT-TAKING VALIUM 5 MG TABLET 1 TABLET NEEDED ORALLY THREE TIMES DAILY NEEDED NOT-TAKING TRAMADOL HCL 50 MG TABLET 1 TABLET NEEDED ORALLY Q8H PRN MDD3 #45TAB FOR SHOULD LAST 30 DAYS NOT-TAKING LEVAQUIN 750 MG TABLET 1 TABLET ORALLY ONCE A DAY NOT-TAKING NORCO 5-325 MG TABLET 1 TABLET NEEDED ORALLY EVERY 6 HRS MDD4 NOT-TAKING LORAZEPAM 0.5 MG TABLET 1 TABLET NEEDED ORALLY EVERY 8 HRS NOT-TAKING ENEMA 19-7 GM/118ML ENEMA RECTAL AFTER NO BM X 4 DAYS NOT-TAKING MILK OF MAGNESIA 400 MG/5ML SUSPENSION ORALLY 1 TIME PER DAY NEEDED EVERY 2 DAYS NOT-TAKING MORPHINE SULFATE (CONCENTRATE) 20 MG/ML SOLUTION 0.25 ML NEEDED ORALLY BID NOT-TAKING BISACODYL 10 MG SUPPOSITORY 1 SUPPOSITORY NEEDED RECTAL ONCE A DAY MEDICATION LIST REVIEWED AND RECONCILED WITH THE PATIENT PAST MEDICAL HISTORY HEPATOTOXICITY ETOH ABUSE BLOOD CLOTS IN LUNGS DEPRESSION HYPERLIPIDEMIA HTN EMPHYSEMA LOW BACK PAIN OSTEOARTHRITIS OF LEFT HIP ANXIETY ALLERGIES WELLBUTRIN: JITTERY FEELING SURGICAL HISTORY NO SURGICAL HISTORY DOCUMENTED. FAMILY HISTORY FATHER: 62 YRS, DIAGNOSED WITH HYPERTENSION, HEART DISEASE MOTHER: 81 YRS, DIAGNOSED WITH HYPERTENSION SIBLINGS: KIDNEY DISEASE, DIAGNOSED WITH DIABETES, HYPERTENSION 5 BROTHER(S) , 2 SISTER(S) . 4DAUGHTER(S) - HEALTHY. SOCIAL HISTORY GENERAL: TOBACCO USE ARE YOU A:CURRENT SMOKER ARE YOU INTERESTED IN QUITTING?NOT READY TO QUIT COUNSELED THE PATIENT ON SMOKING EFFECTS, EDUCATION [id number]/05/2018 HOW MANY CIGARETTES A DAY DO YOU SMOKE?6-10 PATIENT COUNSELED ON THE DANGERS OF TOBACCO USE AND URGED TO QUIT:07/04/2018 ALCOHOL SCREENING DID YOU HAVE A DRINK CONTAINING ALCOHOL IN THE PAST YEAR?NO POINTS0 INTERPRETATIONNEGATIVE RECREATIONAL DRUG USE DRUG USE?NO CAFFEINE CAFFEINE USE?YES HOW OFTEN AND HOW MUCH? 1 CUP OF COFFEE PER DAY AMISH AMISH NO YAZDANISM BELIEFS THAT WOULD IMPACT HEALTH CARE. LANGUAGE LANGUAGES SPOKEN:TURKISH LEARNING BARRIERS / SPECIAL NEEDS VISION IMPAIRED?YES :CORRECTIVE LENSES SPECIAL DEVICES?YES :CANE, WALKER, WHEELCHAIR DIET: FLUID RESTRICTION, 1500ML, NO ADDED SALT. OTHERS AT HOME: CURRENTLY LIVES AT [facility]. PAIN CLINIC PFS, CLERGY, PUBLIC HEALTH REFERRALS PFS REFERRAL NEEDED?NO CLERGY REFERRAL NEEDED?NO PUBLIC HEALTH REFERRAL NEEDED?NO WAS THE PROVIDER NOTIFIED OF ANY PERTINENT INFO? N/A HAS THE PATIENT BEEN EDUCATED REGARDING HIS/HER PLAN OF CARE?YES HAS THE PATIENT BEEN EDUCATED REGARDING PAIN, THE RISK FOR PAIN, THE IMPORTANCE OF EFFECTIVE PAIN MANAGEMENT, AND THE PAIN ASSESSMENT PROCESS?YES ADVANCE DIRECTIVE ADVANCE DIRECTIVE DISCUSSED WITH PATIENT:YES STATES HE HAS HCP SISTER-TRISTAN GOMEZ [phone] ASKED TO BRING COPY IN. 06/19/18 1243 JS REVIEWED 01/01/18 1225 LAS05/01/18 REVIEWED WITH PT. ADREVEIWED WITH PATIENT 06/19/18 1244 JSREVIEWED WITH PATIENT 07/04/18 1129 JS. HOSPITALIZATION/MAJOR DIAGNOSTIC PROCEDURE LIVER, KIDNEYS 03/2017 REVIEW OF SYSTEMS REVIEWED BY: PROVIDER: ROLY WILEY . CONSTITUTIONAL: ANY CHANGE IN YOUR MEDICAL CONDITION? NO . CHILLS NO . FEVER NO . INFECTION: DO YOU HAVE NEW INFECTIONS? NO . DO YOU HAVE HISTORY OF MRSA? NO . MUSCULOSKELETAL: ANY NEW PATTERNS OF PAIN OR NUMBNESS? PATIENT SATES PAIN 8/10 TO NECK AND LOWER BACK AT THIS TIME. STATES TPI TO LOW BACK LAST VISIT PROVIDED NO RELIEF . GASTROENTEROLOGY: ANY NEW CHANGE IN BOWEL CONTROL? NO . GENITOURINARY: ANY NEW CHANGE IN BLADDER CONTROL? NO . IS THERE A CHANCE YOU COULD BE ? NO . HEMATOLOGY/LYMPH: DO YOU TAKE ANY BLOOD THINNERS? (FOR EXAMPLE- COUMADIN, PLAVIX, AGGRENOX, PLATEL, PRADAXA, OR XARELTO) YES, XARELTO . WHEN WAS YOUR LAST DOSE? DATE: 07/03/18 TIME: 0900 . NEUROLOGY: HAVE YOU FALLEN IN THE PAST 6 MONTHS? NO . ANY NEW EXTREMITY NUMBNESS OR WEAKNESS? NO . CARDIOLOGY: DO YOU HAVE A PACEMAKER OR DEFIBRILLATOR? NO . RESPIRATORY: HAVE YOU BEEN SICK IN THE PAST WEEK? NO . FEVER NO . FLU LIKE SYMPTOMS? NO . COUGH NO . INTEGUMENTARY: DO YOU HAVE ANY RASHES OR OPEN SORES? NO . ALLERGIC/IMMUNO: ARE YOU ALLERGIC TO SHELLFISH OR IV DYE? NO . ANY NEW ALLERGIES? NO . PSYCHIATRIC: DO YOU HAVE THOUGHTS OF HURTING YOURSELF OR SOMEONE ELSE? NO . ARE YOU ABUSED, NEGLECTED, OR IN AN UNSAFE ENVIRONMENT? NO . ENDOCRINOLOGY: ARE YOU DIABETIC? NO . OTHER: DO YOU NEED ANY PRESCRIPTIONS? YES . IF YES, PLEASE LIST: ____NORCO . ANY NEW PROBLEMS WITH YOUR MEDICATIONS? NO . WHEN DID YOU LAST EAT? ____ . WHEN DID YOU LAST DRINK? ____ . WHAT DID YOU LAST DRINK? ____ . NAME OF PERSON DRIVING YOU HOME? ____ . DO YOU HAVE ANY OTHER QUESTIONS OR CONCERNS NO . VITAL SIGNS WT 174.0 LBS, HT 70 IN, BMI 24.96 INDEX, BP 148/88 MM HG, HR 83 /MIN, RR 18 /MIN, TEMP 99.1 F, OXYGEN SAT % 97%, SAFE IN ENV? (Y/N) YES, NA INITIALS AW 1120, REVIEWED BY: CHUY. EXAMINATION GENERAL EXAMINATION: GENERAL APPEARANCE:EXTREME DISCOMFORT/ANXIOUS . LUNGS:LUNG SALDANA ARE CLEAR TO AUSCULTATION BILATERALLY. GOOD MOVEMENT OF AIR . HEART:S1, S2 IN A REGULAR RATE AND RHYTHM. NO SIGNIFICANT MURMURS, RUBS OR GALLOPS NOTED . MUSCULOSKELETAL:TRIGGER POINTS:, ELICITED WITH PALPATION OVER LUMBAR PARAVERTEBRAL MUSCLES AND INTO THE SACRUM. RESTRICTION OF ROM IN THIS AREA. LUMBAR SACRAL SPINEPALPATION: + FOR PAIN OVER L/S SPINE. + FOR PAIN OVER L/S PARSPINALS . ASSESSMENTS SPONDYLOSIS OF LUMBOSACRAL REGION WITHOUT MYELOPATHY OR RADICULOPATHY - M47.817 (PRIMARY) TREATMENT SPONDYLOSIS OF LUMBOSACRAL REGION WITHOUT MYELOPATHY OR RADICULOPATHY START TIZANIDINE HCL TABLET, 4 MG, 1 TABLET NEEDED, ORALLY, THREE TIMES A DAY, 30 DAY(S), 90 TABLET, REFILLS 1 START TRAMADOL HCL TABLET, 50 MG, 1 TABLET NEEDED, ORALLY, EVERY 6 HRS PRN MDD4, 30 DAY(S), 120, REFILLS 1 NOTES: ISTOP REGISTRY REVIEWED . PROCEDURE CODES FA211 ESTABILISHED PATIENT [facility] CHARGE DISPOSITION & COMMUNICATION FOLLOW UP 6 WEEKS ELECTRONICALLY SIGNED BY ROLY WILEY, SAURABH ON 07/25/2018 AT 09:44 AM EST DISCLAIMER : THIS IS A VISIT SUMMARY EXTRACTED FROM THE [employer] CHART. IT IS NOT A COPY OF THE [employer] PROGRESS NOTE. RAPHAEL
== END ==
LOC: M PAIN 11:00
PROVIDERS: ATTEND Nurse Practitioner Family
DX: J43.9 Emphysema, unspecified (principal); E78.5 Hyperlipidemia, unspecified; I10 Essential (primary) hypertension; F41.9 Anxiety disorder, unspecified; M16.12 Unilateral primary osteoarthritis, left hip; F17.210 Nicotine dependence, cigarettes, uncomplicated; F10.10 Alcohol abuse, uncomplicated; F32.9 Major depressive disorder, single episode, unspecified; Z79.01 Long term (current) use of anticoagulants; Z79.82 Long term (current) use of aspirin; Z79.891 Long term (current) use of opiate analgesic; Z79.899 Other long term (current) drug therapy; Z88.8 Allergy status to other drugs, medicaments and biological substances

== ENCOUNTER → 2018-08-17 | Outpatient (CLI) | payer OTHER, MEDICAID ==
--- NOTE | 2018-08-31 01:39 | ECWPNPC ---
PATIENT NAME: MANNY ZENDEJAS : 1960 GENDER: MALE VISIT DATE: 08/17/2018 DISCHARGE DATE: 08/17/18 1106 VISIT LOCKED DATE TIME: PHYSICIAN: ROLY SINCLAIR RESOURCE: ROLY SINCLAIR REASON FOR APPOINTMENT 1. BACK HISTORY OF PRESENT ILLNESS HISTORY OF PRESENT ILLNESS: HERE FOR F/U.OF CHRONIC LOW BACK PAIN.HAD TPI OVER LOW BACK ON 05-29-18.REPORTING NO IMPROVEMENT .RATING LOW BACK PAIN VAS 7/10.ON XARELTO THERAPY AND NOT ABLE TO STOP FOR ANYMORE INJECTIONS.HAS TRIALED MULTIPLE MEDICATION WITHOUT RELIEF.CHIEF AREA OF PAIN IS LOW BACK.HE WAS PRESCIBED TRAMADOL AT LAST VISIT.PRESENTS TODAY WITHOUT MEDICATION.INFORMED HIM THAT WE WOULD NOT BE ABLE TO USE NARCOTICS WITHOUT COMPLIANCE WITH CLINIC POLICY. PAIN THE PATIENT DESCRIBES THE PAIN... THE PATIENT DESCRIBES THE PAIN... THE PATIENT DESCRIBES THE PAIN... THE PATIENT DESCRIBES THE PAIN... FALL RISK SCREENING: SCREENING :NO FALLS IN THE PAST YEAR CURRENT MEDICATIONS TAKING FAMOTIDINE 20 MG TABLET 1 TABLET AT BEDTIME ORALLY BID TAKING GLUCAGON EMERGENCY 1 MG KIT INJECTION TAKING TAB-A-DENVER - TABLET 1 TABLET ORALLY ONCE A DAY TAKING ASPIRIN 81 MG TABLET CHEWABLE 1 TABLET ORALLY ONCE A DAY TAKING FOLIC ACID 400 MCG TABLET 1 TABLET ORALLY ONCE A DAY TAKING DUONEB 0.5-2.5 (3) MG/3ML SOLUTION 3 ML INHALATION TID, NOTES: NEEDED TAKING VENLAFAXINE HCL ER 75 MG CAPSULE EXTENDED RELEASE 24 HOUR 1 CAPSULE WITH FOOD ORALLY ONCE A DAY TAKING ALDACTONE 100 MG TABLET 1 TABLET ORALLY ONCE A DAY TAKING PULMICORT FLEXHALER 90 MCG/ACT AEROSOL POWDER BREATH ACTIVATED 2 PUFFS INHALATION TWICE A DAY TAKING FUROSEMIDE 40 MG TABLET 1 TABLET ORALLY BID TAKING BANOPHEN 25 MG TABLET 1 TABLET ORALLY BEFORE BEDTIME TAKING PRAVASTATIN SODIUM 20 MG TABLET 1 TABLET ORALLY ONCE A DAY TAKING THIAMINE HCL 100 MG TABLET 1 TABLET ORALLY ONCE A DAY TAKING TRAZODONE HCL 50 MG TABLET 1 CAP ORALLY DAILY TAKING GABAPENTIN 300 MG CAPSULE 2 CAP ORALLY TID TAKING FEXOFENADINE HCL 180 MG TABLET 1 TABLET NEEDED ORALLY ONCE A DAY TAKING BUSPIRONE HCL 10 MG TABLET 1 TABLET ORALLY BID TAKING DOK 100 MG CAPSULE 1 CAPSULE ORALLY BID TAKING DIAZEPAM 5 MG TABLET 1 TABLET NEEDED ORALLY TID TAKING NORCO 5-325 MG TABLET 1 TABLET NEEDED ORALLY EVERY 6 HRS PRN MDD2 TAKING TIZANIDINE HCL 4 MG TABLET 1 TABLET NEEDED ORALLY THREE TIMES A DAY TAKING TRAMADOL HCL 50 MG TABLET 1 TABLET NEEDED ORALLY EVERY 6 HRS PRN MDD4 NOT-TAKING ZOFRAN ODT 4 MG TABLET DISINTEGRATING 1 TABLET ON THE TONGUE AND ALLOW TO DISSOLVE ORALLY EVERY 6 HRS NOT-TAKING SERTRALINE HCL 100 MG TABLET 1 TABLET ORALLY ONCE A DAY NOT-TAKING HYDROCHLOROTHIAZIDE 12.5 MG CAPSULE 1 CAPSULE IN THE MORNING ORALLY ONCE A DAY NOT-TAKING LACTULOSE 10 GM/15ML SOLUTION 30 ML ORALLY ONCE A DAY NOT-TAKING VALIUM 5 MG TABLET 1 TABLET NEEDED ORALLY THREE TIMES DAILY NEEDED NOT-TAKING TRAMADOL HCL 50 MG TABLET 1 TABLET NEEDED ORALLY Q8H PRN MDD3 #45TAB FOR SHOULD LAST 30 DAYS NOT-TAKING LEVAQUIN 750 MG TABLET 1 TABLET ORALLY ONCE A DAY NOT-TAKING NORCO 5-325 MG TABLET 1 TABLET NEEDED ORALLY EVERY 6 HRS MDD4 NOT-TAKING LORAZEPAM 0.5 MG TABLET 1 TABLET NEEDED ORALLY EVERY 8 HRS NOT-TAKING ENEMA 19-7 GM/118ML ENEMA RECTAL AFTER NO BM X 4 DAYS NOT-TAKING MILK OF MAGNESIA 400 MG/5ML SUSPENSION ORALLY 1 TIME PER DAY NEEDED EVERY 2 DAYS NOT-TAKING MORPHINE SULFATE (CONCENTRATE) 20 MG/ML SOLUTION 0.25 ML NEEDED ORALLY BID NOT-TAKING BISACODYL 10 MG SUPPOSITORY 1 SUPPOSITORY NEEDED RECTAL ONCE A DAY DISCONTINUED XARELTO 20 MG TABLET ORALLY DAILY MEDICATION LIST REVIEWED AND RECONCILED WITH THE PATIENT PAST MEDICAL HISTORY HEPATOTOXICITY ETOH ABUSE BLOOD CLOTS IN LUNGS DEPRESSION HYPERLIPIDEMIA HTN EMPHYSEMA LOW BACK PAIN OSTEOARTHRITIS OF LEFT HIP ANXIETY ALLERGIES WELLBUTRIN: JITTERY FEELING SURGICAL HISTORY NO SURGICAL HISTORY DOCUMENTED. FAMILY HISTORY FATHER: 62 YRS, DIAGNOSED WITH HYPERTENSION, HEART DISEASE MOTHER: 81 YRS, DIAGNOSED WITH HYPERTENSION SIBLINGS: KIDNEY DISEASE, DIAGNOSED WITH DIABETES, HYPERTENSION 5 BROTHER(S) , 2 SISTER(S) . 4DAUGHTER(S) - HEALTHY. SOCIAL HISTORY GENERAL: TOBACCO USE ARE YOU A:CURRENT SMOKER ARE YOU INTERESTED IN QUITTING?NOT READY TO QUIT COUNSELED THE PATIENT ON SMOKING EFFECTS, EDUCATION [id number]/05/2018 HOW MANY CIGARETTES A DAY DO YOU SMOKE?6-10 PATIENT COUNSELED ON THE DANGERS OF TOBACCO USE AND URGED TO QUIT:07/04/2018 ALCOHOL SCREENING DID YOU HAVE A DRINK CONTAINING ALCOHOL IN THE PAST YEAR?NO POINTS0 INTERPRETATIONNEGATIVE RECREATIONAL DRUG USE DRUG USE?NO CAFFEINE CAFFEINE USE?YES HOW OFTEN AND HOW MUCH? 1 CUP OF COFFEE PER DAY ZOROASTRIANISM ZOROASTRIANISM NO TAOIST BELIEFS THAT WOULD IMPACT HEALTH CARE. LANGUAGE LANGUAGES SPOKEN:BRUNEIAN LEARNING BARRIERS / SPECIAL NEEDS VISION IMPAIRED?YES :CORRECTIVE LENSES SPECIAL DEVICES?YES :CANE, WALKER, WHEELCHAIR DIET: FLUID RESTRICTION, 1500ML, NO ADDED SALT. OTHERS AT HOME: CURRENTLY LIVES AT [facility]. PAIN CLINIC PFS, CLERGY, PUBLIC HEALTH REFERRALS PFS REFERRAL NEEDED?NO CLERGY REFERRAL NEEDED?NO PUBLIC HEALTH REFERRAL NEEDED?NO WAS THE PROVIDER NOTIFIED OF ANY PERTINENT INFO? N/A HAS THE PATIENT BEEN EDUCATED REGARDING HIS/HER PLAN OF CARE?YES HAS THE PATIENT BEEN EDUCATED REGARDING PAIN, THE RISK FOR PAIN, THE IMPORTANCE OF EFFECTIVE PAIN MANAGEMENT, AND THE PAIN ASSESSMENT PROCESS?YES ADVANCE DIRECTIVE ADVANCE DIRECTIVE DISCUSSED WITH PATIENT:YES STATES HE HAS HCP SISTER-TRISTAN GOMEZ [phone] ASKED TO BRING COPY IN. 08/17/18 REVIEWED 01/01/18 1225 LAS05/01/18 REVIEWED WITH PT. ADREVEIWED WITH PATIENT 06/19/18 1244 JSREVIEWED WITH PATIENT 07/04/18 1129 JSREVIEWED WITH PT. 08/17/18 BV 1033. HOSPITALIZATION/MAJOR DIAGNOSTIC PROCEDURE LIVER, KIDNEYS 03/2017 REVIEW OF SYSTEMS REVIEWED BY: PROVIDER: ROLY WILEY . CONSTITUTIONAL: ANY CHANGE IN YOUR MEDICAL CONDITION? NO . CHILLS NO . FEVER NO . INFECTION: DO YOU HAVE NEW INFECTIONS? NO . DO YOU HAVE HISTORY OF MRSA? NO . MUSCULOSKELETAL: ANY NEW PATTERNS OF PAIN OR NUMBNESS? NO . GASTROENTEROLOGY: ANY NEW CHANGE IN BOWEL CONTROL? NO . GENITOURINARY: ANY NEW CHANGE IN BLADDER CONTROL? NO . IS THERE A CHANCE YOU COULD BE ? NO . HEMATOLOGY/LYMPH: DO YOU TAKE ANY BLOOD THINNERS? (FOR EXAMPLE- COUMADIN, PLAVIX, AGGRENOX, PLATEL, PRADAXA, OR XARELTO) NO . WHEN WAS YOUR LAST DOSE? DATE: TIME: . NEUROLOGY: HAVE YOU FALLEN IN THE PAST 12 MONTHS? NO . ANY NEW EXTREMITY NUMBNESS OR WEAKNESS? NO . CARDIOLOGY: DO YOU HAVE A PACEMAKER OR DEFIBRILLATOR? NO . RESPIRATORY: HAVE YOU BEEN SICK IN THE PAST WEEK? NO . FEVER NO . FLU LIKE SYMPTOMS? NO . COUGH NO . INTEGUMENTARY: DO YOU HAVE ANY RASHES OR OPEN SORES? NO . ALLERGIC/IMMUNO: ARE YOU ALLERGIC TO IV DYE? NO . ANY NEW ALLERGIES? NO . PSYCHIATRIC: DO YOU HAVE THOUGHTS OF HURTING YOURSELF OR SOMEONE ELSE? NO . ARE YOU ABUSED, NEGLECTED, OR IN AN UNSAFE ENVIRONMENT? NO . ENDOCRINOLOGY: ARE YOU DIABETIC? NO . OTHER: DO YOU NEED ANY PRESCRIPTIONS? YES, TRAMADOL, TIZANIDINE . IF YES, PLEASE LIST: ____ . ANY NEW PROBLEMS WITH YOUR MEDICATIONS? NO . WHEN DID YOU LAST EAT? ____ . WHEN DID YOU LAST DRINK? ____ . WHAT DID YOU LAST DRINK? ____ . NAME OF PERSON DRIVING YOU HOME? ____ . DO YOU HAVE ANY OTHER QUESTIONS OR CONCERNS NO . VITAL SIGNS WT 179.8 LBS, HT 70 IN, BMI 25.80 INDEX, BP 132/72 MM HG, HR 75 /MIN, RR 18 /MIN, TEMP 98.0 F, OXYGEN SAT % 97%, NA INITIALS AW 1029. EXAMINATION GENERAL EXAMINATION: GENERAL APPEARANCE:AWAKE,ALERT ,PLEAASANT . PSYCHAFFECT NORMAL . LUNGS:LUNG SALDANA ARE CLEAR TO AUSCULTATION BILATERALLY. GOOD MOVEMENT OF AIR . HEART:S1, S2 IN A REGULAR RATE AND RHYTHM. NO SIGNIFICANT MURMURS, RUBS OR GALLOPS NOTED . ASSESSMENTS SPONDYLOSIS OF LUMBOSACRAL REGION WITHOUT MYELOPATHY OR RADICULOPATHY - M47.817 (PRIMARY) TREATMENT SPONDYLOSIS OF LUMBOSACRAL REGION WITHOUT MYELOPATHY OR RADICULOPATHY REFILL TIZANIDINE HCL TABLET, 4 MG, 1 TABLET NEEDED, ORALLY, THREE TIMES A DAY, 30 DAY(S), 90 TABLET, REFILLS 0 REFILL TRAMADOL HCL TABLET, 50 MG, 1 TABLET NEEDED, ORALLY, EVERY 6 HRS PRN MDD4, 30 DAY(S), 120, REFILLS 0 NOTES: ISTOP REGISTRY REVIEWED AND DEMONSTRATES COMPLLIANCE. (REF # [id number] ) BRINGS IN MEDICATIONS WHICH IS APPROPRIATE FOR WHAT WAS DISPENSED. RECENT URINE TOXICOLOGY REVIEWED. NO UNAUTHORIZED MEDICATIONS. NO ILLICIT SUBSTANCES AND PRESCRIBED MEDICATIONS WERE PRESENT. URINE TOX TODAY, RISKS AND BENEFITS OF NARCOTIC/OPIOD MEDICATIONS WERE REVIEWED WITH PATIENT - THIS INCLUDES BUT IS NOT LIMITED TO RISK OF DEPENDANCE/DEVELOPMENT OF ADDICTION, MOOD DISTURBANCE AND DEPRESSION, OSTEOPOROSIS, HORMONAL AND LABIDAL CHANGES, RESPIRATORY DEPRESSION AND . PATIENT IS ADVISED NOT TO DRIVE OR DRINK ALCOHOL WHILE ON THESE MEDICATIONS, [facility] NARCOTIC AGREEMENT WAS REVIEWED AND SIGNED TODAY BY THE PATIENT. SEE ATTACHED DOCUMENT FOR FULL DETAILS; SPECIFIC ISSUES WERE REVIEWED: 1) KEEP PAIN MEDS IN THEIR ORIGINAL BOTTLES AND ANY WEEKLY PLANNERS ARE TO BE BROUGHT TO THE PAIN CENTER AT EVERY VISIT. 2) THE PATIENT IS NOT TO INCREASE DOSING OR TIMING OF THEIR PAIN MEDICATION WITHOUT SPECIFIC DIRECTION OF THEIR PAIN CENTERPROVIDER (NOT ER OR OTHER PROVIDERS). 3) ALL PAIN MEDS ARE TO BE KEPT SECURED, IN A LOCKED BOX. 4) NO PAIN MEDS ARE TO BE SHARED WITH ANY OTHER PERSON FOR ANY REASON. 5) NO PAIN MEDS MAY BE TAKEN FROM ANY FRIENDS OR RELATIVES FOR ANY REASON 6) NO MEDS OR SUBSTANCES WHICH ARE NOT LEGAL ARE TO BE USED- NO MARIJUANA, NO COCAINE, AMPHETAMINES, HEROIN, OR OTHERS ARE EVER TO BE USED. 7)URINE TESTING IS DONE TO ACCOUNT FOR MEDS AND SUBSTANCES BEING TAKEN AND WILL BE DONE RANDOMLY. PROCEDURE CODES FA211 ESTABILISHED PATIENT [facility] CHARGE DISPOSITION & COMMUNICATION FOLLOW UP SQUEEZE IN 3 WEEKS 830AM PILL COUNT W ME ELECTRONICALLY SIGNED BY SAURABH DIAZ ON 08/30/2018 AT 04:08 PM EST DISCLAIMER : THIS IS A VISIT SUMMARY EXTRACTED FROM THE [employer] CHART. IT IS NOT A COPY OF THE [employer] PROGRESS NOTE. RAPHAEL
== END ==
LOC: M PAIN 10:15
PROVIDERS: ATTEND Nurse Practitioner Family
DX: M47.817 Spondylosis without myelopathy or radiculopathy, lumbosacral region (principal); G89.29 Other chronic pain; E78.5 Hyperlipidemia, unspecified; I10 Essential (primary) hypertension; J43.9 Emphysema, unspecified; M16.12 Unilateral primary osteoarthritis, left hip; F41.9 Anxiety disorder, unspecified; F32.9 Major depressive disorder, single episode, unspecified; F10.10 Alcohol abuse, uncomplicated; F17.210 Nicotine dependence, cigarettes, uncomplicated; Z79.82 Long term (current) use of aspirin; Z79.899 Other long term (current) drug therapy; Z88.8 Allergy status to other drugs, medicaments and biological substances

== ENCOUNTER → 2019-02-16 | Outpatient (REF) | LOC: M LAB LCGH 13:08 | PROVIDERS: ATTEND Internal Medicine Pulmonary Disease | DX: J44.1 Chronic obstructive pulmonary disease with (acute) exacerbation (principal) ==

== ENCOUNTER 2024-08-01 14:19 | Emergency (ER) | payer OTHER, MEDICAID ==
[2024-08-01 15:30] LABS: HEMATOCRIT 36.5 % (42.0-52.0); HEMOGLOBIN 11.5 g/dl (13.5-17.5); MEAN CORPUSCULAR HEMOGLOBIN 27.6 pg (27.0-33.0); MEAN CORPUSCULAR HGB CONC 31.5 g/dl (32.0-36.5); MEAN CORPUSCULAR VOLUME 87.7 fl (80.0-96.0); PLATELET COUNT, AUTOMATED 250 10^3/uL (150-450); RED BLOOD COUNT 4.16 10^6/uL (4.30-6.10); WHITE BLOOD COUNT 5.7 10^3/uL (4.0-10.0)
[2024-08-01 15:50] LABS: ETHYL ALCOHOL (ETHANOL) 0.279 % (0.000-0.010)
[2024-08-01 15:52] LABS: SALICYLATE LEVEL < 3.0 MG/DL (<30)
[2024-08-01 15:53] LABS: ALBUMIN 3.4 G/DL (3.2-5.2); ALKALINE PHOSPHATASE 92 U/L (40-129); ALT/SGPT 14 U/L (7.0-40); AST/SGOT 19 U/L (<34); BILIRUBIN,DIRECT < 0.1 MG/DL (<0.4); BILIRUBIN,TOTAL < 0.2 MG/DL (0.3-1.2); BLOOD UREA NITROGEN 10 MG/DL (9-23); CALCIUM LEVEL 8.4 MG/DL (8.3-10.6); CARBON DIOXIDE LEVEL 26 MMOL/L (20-31); CHLORIDE LEVEL 109 MMOL/L (98-107); CREATININE FOR GFR 1.06 MG/DL (0.70-1.30); GLOMERULAR FILTRATION RATE > 60.0 (>49); GLUCOSE, FASTING 117 MG/DL (74-106); POTASSIUM SERUM 4.1 MMOL/L (3.5-5.1); SODIUM LEVEL 146 MMOL/L (136-145); TOTAL PROTEIN 6.6 G/DL (5.7-8.2)
[2024-08-01 15:56] LABS: THYROID STIMULATING HORMONE 0.378 uIU/ML (0.55-4.78)
[2024-08-01 19:08] LABS: AMPHETAMINES LEVEL URINE NEGATIVE (NEGATIVE); BARBITURATES URINE NEGATIVE (NEGATIVE); COCAINE METABOLITE URINE NEGATIVE (NEGATIVE); METHADONE URINE NEGATIVE (NEGATIVE); OPIATES URINE NEGATIVE (NEGATIVE); PHENCYCLIDINE URINE NEGATIVE (NEGATIVE)
[2024-08-01 19:10] LABS: BENZODIAZEPINES URINE POSITIVE (NEGATIVE); CANNABINOIDS URINE POSITIVE (NEGATIVE)
[2024-08-01 19:11] LABS: CK-MB VALUE MASS 5.2 NG/ML (<3.6)
[2024-08-01 19:12] LABS: CPK CREATINE PHOSPHOKINASE 154 U/L (46-171); MB/CK RELATIVE INDEX 3.37 (< OR =4)
[2024-08-01 19:12] LABS: VENOUS HCO3 24.3 MMOL/L (23.0-27.0); VENOUS O2 SATURATION 73.4 % (60.0-80.0); VENOUS PARTIAL PRESSURE CO2 47.8 mmHg (38.0-50.0); VENOUS PARTIAL PRESSURE O2 42.2 mmHg (30.0-50.0); VENOUS PH 7.324 UNITS (7.330-7.430); VENOUS STANDARD HCO3 22.3 MMOL/L; VENOUS TOTAL CO2 25.8 MMOL/L (24.0-28.0)
[2024-08-01] MEDS: predniSONE 20 MG TAB PO ONE (19:13)
[2024-08-01] MEDS: IPRATROPIUM 0.5MG/ALBUTEROL 2.5MG INH SOL UD 3ML (DUONEB) NEB ONE (19:27)
[2024-08-01 19:53] LABS: MB/CK RELATIVE INDEX 2.94 (< OR =4)
[2024-08-02 00:43] VITALS: BP 119/76; TEMP 97.5; O2SAT 95
== END 2024-08-02 01:33 | disposition home or self-care (01) ==
LOC: M ED 14:19
DX: F10.120 Alcohol abuse with intoxication, uncomplicated (principal); I44.0 Atrioventricular block, first degree; I25.2 Old myocardial infarction; I45.81 Long QT syndrome; I10 Essential (primary) hypertension; E78.5 Hyperlipidemia, unspecified; J43.8 Other emphysema; F41.9 Anxiety disorder, unspecified; F32.A Depression, unspecified; F17.210 Nicotine dependence, cigarettes, uncomplicated; Z86.711 Personal history of pulmonary embolism
CPT/HCPCS: 36415; 71045; 80048; 80076; 80143; 80307; 82077; 82550; 82553; 82803; 84443; 84484; 85027; 87486; 87581; 87633; 87798; 93005; 93041; 94760; 99285; J7512